=== PATIENT | male | born 1955 | race Caucasian/White ===

== ENCOUNTER → 2023-04-08 19:24 | Outpatient (REF) | payer MEDICARE, OTHER, SELFPAY | LOC: CLAB 19:24 | PROVIDERS: ATTENDING PHYSICIAN Otolaryngology | DX: J32.0 Chronic maxillary sinusitis (principal) | CPT/HCPCS: 87070; 87205 ==

== ENCOUNTER → 2023-06-10 08:49 | Outpatient (REF) | payer MEDICARE, OTHER, SELFPAY | LOC: RAD 08:49 | PROVIDERS: ATTENDING PHYSICIAN Registered Nurse; FAMILY PHYSICIAN Family Medicine | DX: I87.2 Venous insufficiency (chronic) (peripheral) (principal); I70.203 Unspecified atherosclerosis of native arteries of extremities, bilateral legs; M71.22 Synovial cyst of popliteal space [Baker], left knee | CPT/HCPCS: 93922; 93925; 93970 ==

== ENCOUNTER 2023-08-14 06:30 | Outpatient (RCR) | payer MEDICARE, OTHER, SELFPAY | END 2023-08-14 23:59 | disposition home or self-care (01) | LOC: RPT 06:30 | PROVIDERS: ATTENDING PHYSICIAN Surgery Vascular Surgery; FAMILY PHYSICIAN Family Medicine | DX: I89.0 Lymphedema, not elsewhere classified (principal); Z73.6 Limitation of activities due to disability; I87.2 Venous insufficiency (chronic) (peripheral) | CPT/HCPCS: 97016; 97162; 97530 ==

== ENCOUNTER 2023-09-03 14:42 | Outpatient (RCR) | payer MEDICARE, OTHER, SELFPAY | END 2023-09-03 23:59 | disposition home or self-care (01) | LOC: RPT 14:42 | PROVIDERS: ATTENDING PHYSICIAN Surgery Vascular Surgery; FAMILY PHYSICIAN Family Medicine | DX: I87.2 Venous insufficiency (chronic) (peripheral) (principal) | CPT/HCPCS: 97016; 97110; 97140; 97530 ==

== ENCOUNTER 2023-09-20 14:34 | Outpatient (RCR) | payer MEDICARE, OTHER, SELFPAY | END 2023-09-20 23:59 | disposition home or self-care (01) | LOC: RPT 14:34 | PROVIDERS: ATTENDING PHYSICIAN Surgery Vascular Surgery; FAMILY PHYSICIAN Family Medicine | DX: I87.2 Venous insufficiency (chronic) (peripheral) (principal); I89.0 Lymphedema, not elsewhere classified; Z73.6 Limitation of activities due to disability | CPT/HCPCS: 97110; 97140 ==

== ENCOUNTER 2023-10-07 06:04 | Day surgery (SDC) | payer MEDICARE, OTHER, SELFPAY ==
--- NOTE | 2023-09-05 09:45 | CM ---
Addendum entered by Susan Collazo 09/17/23 10:24:
VN referral completed and sent to [facility] through [employer] with request for start of care on 10/06.
Original Note:
Patient is scheduled for an elective L TKR on 10/07/23- he is a same day patient. Spoke with patient and his prior to surgery. Introduced role of Orthopedic Navigator. Patient reports that he lives with his in a two story home. There are
two steps to enter and a flight of steps to the second floor. He currently functions independently. He has no DME and has never had VN services. PCP is Ilya Christopher.
Discussed orthopedic program and post surgical plans. Reviewed that he will have VN services initially (medicare.gov website and ratings reviewed) and will then start outpatient PT. Patient selects VN (face sheet faxed to [facility] to facilitate
confirmation of benefits) for his home care needs and will go to [facility] for outpatient PT.
Patient is in agreement with plan and states that his will be home with him.
Patient will complete online education.
Plan: Orthopedic Navigator will remain available to assist with the care of patient and will reassess discharge needs after surgery.
[2023-09-20 14:12] VITALS: BMI 38.0
[2023-09-20 14:24] LABS: Hematocrit 41.8 % (39.0-52.0); Hemoglobin 14.6 g/dL (13.0-18.0); Mean Corp Hgb Conc. 34.9 g/dL (33.0-37.0); Mean Corpuscular Hgb 30.6 pg (27.0-31.0); Mean Corpuscular Volume 87.6 fL (80.0-94.0); Platelet Count 226 10^3/uL (130-400); Red Blood Cell Count 4.77 10^6/uL (4.70-6.10); Red Cell Dist. Width 14.2 % (11.5-14.5); White Blood Cell Count 6.4 10^3/uL (4.8-10.8)
[2023-09-20 15:22] LABS: ALT (SGPT) 26 U/L (0-50); AST (SGOT) 33 U/L (17-59); Alkaline Phosphatase 88 U/L (38-126); Blood Urea Nitrogen 21 mg/dl (9-20); Calcium 9.4 mg/dl (8.4-10.2); Carbon Dioxide 26 mmol/L (22-30); Chloride 105 mmol/L (98-107); Estimated Creatinine Clearance 77 ml/min; Glucose 127 mg/dl (70-99); Potassium 4.1 mmol/L (3.5-5.1); Sodium 138 mmol/L (135-145); Total Bilirubin 1.4 mg/dl (0.2-1.3); Total Protein 6.3 g/dl (6.3-8.2); eGFR > 60.00
[2023-09-22 10:58] LABS: Glycohemoglobin (HgbA1c) 5.2 % (4.0-5.6)
[2023-10-01 11:25] VITALS: BMI 38.0
[2023-10-07] VITALS (12 sets, daily range): BP systolic 101–134; BP diastolic 70–86; PULSE 72; O2SAT 94
[2023-10-07] MEDS: CELEBREX 200 MG PO (06:26)
[2023-10-07] MEDS: TYLENOL 650 MG PO (06:27)
[2023-10-07] MEDS: NORMOSOL-R 1000 IV (06:34)
[2023-10-07] MEDS: ROXICODONE 5 MG PO (10:38)
--- NOTE | 2023-10-07 10:39 | SUR.PHASEI ---
patient in pacu post op total knee replacement- comfortable in pacu, sats low initially - encouraged deep breathing and coughing. chest clear, vss - discharged to [facility] with report
[2023-10-07] MEDS: ANCEF 5 IV (11:26)
== END 2023-10-07 11:47 | disposition home or self-care (01) ==
LOC: SDS 06:04
PROVIDERS: ATTENDING PHYSICIAN Specialist; FAMILY PHYSICIAN Family Medicine
DX: M17.12 Unilateral primary osteoarthritis, left knee (principal); E66.01 Morbid (severe) obesity due to excess calories; Z68.37 Body mass index [BMI] 37.0-37.9, adult
CPT/HCPCS: 27447; C1776; 73560; 80053; 83036; 85027; 87070; 97116; 97162; C1713

== ENCOUNTER 2023-11-25 11:53 | Outpatient (RCR) | payer MEDICARE, OTHER, SELFPAY | END 2023-11-25 23:59 | disposition home or self-care (01) | LOC: RPT 11:53 | PROVIDERS: ATTENDING PHYSICIAN Surgery Vascular Surgery; FAMILY PHYSICIAN Family Medicine | DX: I89.0 Lymphedema, not elsewhere classified (principal); I87.2 Venous insufficiency (chronic) (peripheral); Z73.6 Limitation of activities due to disability | CPT/HCPCS: 97140; 97530 ==

== ENCOUNTER 2023-12-24 10:49 | Outpatient (RCR) | payer MEDICARE, OTHER, SELFPAY | END 2023-12-24 23:59 | disposition home or self-care (01) | LOC: RPT 10:49 | PROVIDERS: ATTENDING PHYSICIAN Surgery Vascular Surgery; FAMILY PHYSICIAN Family Medicine | DX: I89.0 Lymphedema, not elsewhere classified (principal); I87.2 Venous insufficiency (chronic) (peripheral); Z73.6 Limitation of activities due to disability | CPT/HCPCS: 97110; 97140 ==

== ENCOUNTER 2024-02-26 14:08 | Outpatient (RCR) | payer MEDICARE, OTHER, SELFPAY | END 2024-02-27 07:33 | disposition home or self-care (01) | LOC: RPT 14:08 | PROVIDERS: ATTENDING PHYSICIAN Surgery Vascular Surgery; FAMILY PHYSICIAN Family Medicine | DX: I89.0 Lymphedema, not elsewhere classified (principal); I87.2 Venous insufficiency (chronic) (peripheral); Z73.6 Limitation of activities due to disability | CPT/HCPCS: 97140; 97530 ==

== ENCOUNTER 2024-08-19 09:13 | Day surgery (SDC) | payer MEDICARE, OTHER, SELFPAY | END 2024-08-19 11:50 | disposition home or self-care (01) | LOC: CATH 09:13 | PROVIDERS: ATTENDING PHYSICIAN Internal Medicine Cardiovascular Disease; FAMILY PHYSICIAN Family Medicine; OTHER PHYSICIAN Internal Medicine Cardiovascular Disease | DX: I48.19 Other persistent atrial fibrillation (principal); I08.1 Rheumatic disorders of both mitral and tricuspid valves; Z79.01 Long term (current) use of anticoagulants; I49.8 Other specified cardiac arrhythmias; I44.0 Atrioventricular block, first degree | CPT/HCPCS: 93312; 93320; 93325; 92960; 93005 ==

== ENCOUNTER 2024-08-27 09:37 | Emergency (ER) | payer MEDICARE, OTHER, SELFPAY ==
[2024-08-27] VITALS (24 sets, daily range): BP systolic 114–143; BP diastolic 82–102; BMI 37.8
--- NOTE | 2024-08-27 10:16 | ED.GENMED ---
History of Present Illness
General
Chief Complaint: Heart Rate Problem
Source: patient and spouse
Exam Limitations: none
Time Seen by Provider: 08/27/24 09:56
Nursing documentation reviewed up to this point in time: agreed with
History of Present Illness
History of Present Illness:
68-year-old male past medical history of atrial fibrillation diagnosed about a month ago as well as hypertension presenting to the emergency department today with concerns of being in atrial fibrillation since yesterday according to his [employer]
and feeling some degree of shortness of breath today even at rest slightly worse with exertion. No chest pain or palpitations at this point. Had a AYAZ cardioversion 8 days ago. Patient is currently on Eliquis and metoprolol and has not missed any
doses.
Past History
Past History
ED Past Medical History: Negative CVA or HTN
Social History
Personal:
Living: with family
Employment: Employed
Review of Systems
Review of Systems
Allergies reviewed?: Yes
All Other Systems: ROS reviewed and negative except as documented in HPI and ROS
Phy Exam
Physical Exam
Physical Exam:
GENERAL: Alert , in no apparent distress
EYE: pupils equal and reactive
NECK: Supple, no significant adenopathy.
ENT: o/p clr, mmm.
CARDIAC: Irregularly irregular rhythm and rate
LUNGS: Clear breath sounds bilaterally, no acute respiratory distress, no wheezes/rales/rhonchi
ABDOMEN: Soft, without focal tenderness, no r/g, no cvat
NEUROLOGICAL: Alert and oriented, no focal neuro deficits
SKIN: Warm and dry, skin intact.
MUSCULOSKELETAL: No edema, well perfused.
PSYCH: Normal and appropriate interaction.
Course
Orders/Labs/Results
Orders:
Orders
08/27/24
Electrocardiogram (*1) Stat
Comment: DONE
08/27/24 09:38
EKG [Electrocardiogram (*1)] Urgent
Reason for Study: Atrial Fibrillation
EKG- Treatment ONCE
08/27/24 10:12
CR Chest - 2 Views Urgent
Comment:
Reason For Exam: SOB
08/27/24 10:18
Complete Blood Count/With Diff Urgent
Comprehensive Metabolic Panel Urgent
Magnesium Urgent
NT-proBNP Urgent
Troponin I Urgent
08/27/24 11:40
Propofol [Diprivan] 20 ml .ROUTE .STK-MED
Abnormal Lab Results
08/27/24
10:18
Absolute Lymphs (auto) 1.0 L 10^3/uL
(1.2-3.4)
Lymphocytes % 19.5 L %
(20.5-51.1)
Chloride 111 H mmol/L
(98-107)
BUN 23 H mg/dl
(9-20)
Total Bilirubin 1.5 H mg/dl
(0.2-1.3)
08/27/24 10:18
08/27/24 10:18
Vital Signs
Initial and Last Documented VS:
Initial Vital Signs
Temp Pulse Resp BP Pulse Ox
97.7 F 107 20 143/94 96
08/27/24 09:46 08/27/24 09:46 08/27/24 09:46 08/27/24 09:46 08/27/24 09:46
Last Documented Vital Signs
Temp Pulse Resp BP Pulse Ox
97.8 F 74 12 120/88 97
08/27/24 12:05 08/27/24 12:16 08/27/24 12:16 08/27/24 12:16 08/27/24 12:16
Procedures
Cardioversion
Indication:: Afib
Performed by:: Dr. Reeves, myself
Synchronized?: Yes
Energy Used: 200 joules
Number of attempts: 1
Successful?: Yes
Complications: None
ASA Risk Score: Class II
Any reaction or bad outcome to prior sedation/anesthesia?: No history of a reaction
Sedation level to be attained: moderate
Chart and allergies reviewed: Yes
Patient reassessed prior to sedation: Yes
Time out completed at (validating right patient & procedure): 11:46
History of difficult intubation: No
Airway free of obstruction: Yes
Patient has a gag reflex: Yes
Patient is able to open mouth: Yes
Patient has no dentures: Yes
Patient has no loose teeth: Yes
Medication administered by Provider during Moderate Sedation: IV Propofol (mg) (80)
Total dose administered: 80
Time drug administered: 11:46
Start Time: 11:46
Stop Time: 11:57
MDM/Problems Addressed
MDM/Problems Addressed:
68-year-old male presenting to the emergency department today with concerns of vague shortness of breath even at rest slightly worse with exertion today. [employer] was notifying him of atrial fibrillation since yesterday. Does have a history of
this over the past month or so has been on Eliquis and metoprolol. Had a cardioversion 8 days ago. Here patient is in atrial fibrillation heart rate ranging from 80-100. Does have some ongoing shortness of breath. Case was discussed with
cardiology and recommended cardioversion. This was performed here without incident. Patient tolerated well with conversion to sinus rhythm. Patient then discharged in stable condition with close follow-up with cardiology.
*Pulse Oximetry
SaO2: 96
Oxygen Mode of Delivery: Room air
Patient hypoxic: no (97)
*Critical Care Note
Total Time (30-74mins, 75-104mins- exclusive of procedures): Not Applicable
ED Attending Note
-
Portions of this chart may have been created with voice recognition software.� Occasional wrong word or��sound alike� substitutions may have occurred due to the inherent limitations of voice recognition software.
Discharge Plan
Departure
Patient Disposition: Home (Routine Discharge)
Date of Disposition: 08/27/24
Time of Disposition: 12:54
Patient with high blood pressure during this ER visit?: No
Condition: Good
Covid-19: Not Applicable
Discharge Problem:
Atrial fibrillation
Instructions: Atrial Fibrillation (DC)
Prescriptions:
No Action
amlodipine 10 mg Tablet
10 mg PO HS
multivitamin Capsule
1 cap PO DAILY
Breo Ellipta 50-25 mcg/dose Blister With Device
1 ea INHALATION DAILY PRN (Reason: congestion)
acetaminophen [Tylenol] 325 mg Capsule
650 mg PO Q6H PRN (Reason: pain/headache)
sennosides [Senokot] 8.6 mg tablet
8.6 mg PO BID PRN (Reason: Constipation) Qty: 14 0RF
metoprolol succinate 50 mg Tablet Extended Release 24 Hr
50 mg PO BID
Eliquis 5 mg Tablet
5 mg PO BID
Referrals:
Ilya Christopher MD [Family Provider, Family Practice]
Calvin Booker MD [Active, Cardiology] - Follow up in 1 week
Activity Restrictions/Additional Instructions:
You came to the emergency department today with concerns of atrial fibrillation. Please follow closely with cardiology. Return for any worsening, new or concerning symptoms.
Interventions
Interventions:
*Risk Screen - Suicide Last Done: 08/27/24 09:46
*General Assessment Last Done: 08/27/24 10:22
*Neglect/Abuse Screening Last Done: 08/27/24 09:46
*ED- Fall Risk Assessment Last Done: 08/27/24 10:22
*ED COVID-19 Vaccine History Last Done: 08/27/24 09:46
ED- Cardiac Assessment Last Done: 08/27/24 10:43
ED- Pulmonary Assessment Last Done: 08/27/24 10:43
Discharge Date and Time
Print Language: FRENCH
[2024-08-27 10:26] LABS: Hematocrit 44.5 % (39.0-52.0); Hemoglobin 15.3 g/dL (13.0-18.0); Mean Corp Hgb Conc. 34.4 g/dL (33.0-37.0); Mean Corpuscular Volume 88.1 fL (80.0-94.0); Nucleated Red Blood Cells % 0 % (-); Platelet Count 182 10^3/uL (130-400); Red Cell Dist. Width 14.3 % (11.5-14.5)
[2024-08-27 10:50] LABS: Troponin I < 0.012 ng/ml
[2024-08-27 11:22] LABS: ALT (SGPT) 15 U/L (0-50); AST (SGOT) 20 U/L (17-59); Albumin 4.0 g/dl (3.5-5.0); Alkaline Phosphatase 79 U/L (38-126); Blood Urea Nitrogen 23 mg/dl (9-20); Calcium 8.8 mg/dl (8.4-10.2); Carbon Dioxide 23 mmol/L (22-30); Chloride 111 mmol/L (98-107); Estimated Creatinine Clearance 93 ml/min; Glucose 92 mg/dl (70-99); Magnesium 2.0 mg/dl (1.6-2.3); Potassium 4.2 mmol/L (3.5-5.1); Sodium 139 mmol/L (135-145); Total Protein 6.7 g/dl (6.3-8.2); eGFR > 60.00
== END 2024-08-27 13:10 | disposition home or self-care (01) ==
LOC: EMR 09:37
PROVIDERS: Physician Assistant; EMERGENCY PHYSICIAN Emergency Medicine; FAMILY PHYSICIAN Family Medicine
DX: I48.91 Unspecified atrial fibrillation (principal); I10 Essential (primary) hypertension; Z79.01 Long term (current) use of anticoagulants; Z79.899 Other long term (current) drug therapy
CPT/HCPCS: 92960; 99152; 99285; 71046; 80053; 83735; 83880; 84484; 85025; 93005

== ENCOUNTER → 2024-10-06 12:56 | Outpatient (REF) | payer MEDICARE, OTHER, SELFPAY | LOC: RCS 12:56 | PROVIDERS: ATTENDING PHYSICIAN Internal Medicine Cardiovascular Disease; FAMILY PHYSICIAN Family Medicine | DX: I48.91 Unspecified atrial fibrillation (principal) | CPT/HCPCS: 93306 ==

== ENCOUNTER 2024-10-17 13:17 | Inpatient (IN) | payer MEDICARE, OTHER, SELFPAY ==
[2024-10-17] VITALS (25 sets, daily range): BP systolic 115–165; BP diastolic 62–132; BMI 36.6; BMI 40.1
--- NOTE | 2024-10-17 08:08 | ED.GENMED ---
History of Present Illness
General
Chief Complaint: Breathing Problem
Source: patient, records and spouse
Exam Limitations: none
Time Seen by Provider: 10/17/24 07:52
Nursing documentation reviewed up to this point in time: agreed with
History of Present Illness
History of Present Illness:
69-year-old male with past medical history of hypertension, atrial fibrillation on Eliquis who presents to the ER with his for evaluation of shortness of breath. Patient reports progression of symptoms over the past 2 weeks. He reports
shortness of breath with light exertion. He reports significant orthopnea�has to sit upright to sleep essentially. He reports mild nonproductive cough. He reports increased swelling in his legs�has mild chronic lymphedema much worse than usual
recently. He denies any chest pain or palpitations. 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
Past History
Past History
ED Past Medical History: Negative CVA or HTN
Social History
Personal:
Living: with family
Employment: Employed
Review of Systems
Review of Systems
All Other Systems: ROS reviewed and negative except as documented in HPI and ROS
Constitutional: Reports fatigue; Denies fever
Respiratory: Reports cough and trouble breathing
Cardiac: Denies chest pain or palpitations
ABD/GI: Denies abdominal pain
: Denies flank pain
Musculoskeletal: Reports edema; Denies neck pain or back pain
Neurological: Denies headache
Phy Exam
Physical Exam
Physical Exam:
General: Awake, alert, oriented x3; sitting upright in bed in no acute distress
Head: Normocephalic, atraumatic
Eyes: Conjunctiva normal, EOMI
Throat: Airway intact, handling secretions
Neck: Trachea midline, no JVD appreciated
Lungs: Patient has mild tachypnea with a respiratory rate of 20-22, no hypoxia; patient has rales at the lung bases bilaterally
Heart: Tachycardia with irregularly irregular rhythm, no murmurs, gallops, or rubs appreciated
Neuro: Grossly intact
Extremities: Marked bilateral lower extremity edema +3 pitting in the lower extremities bilaterally; extremities are warm and well-perfused
Scores
Heart Failure Risk
Heart Failure Risk Score: Not Applicable
Heart Score for Chest Pain Patients
STEMI patient?: Not applicable
Withdrawal Assessment of Alcohol
Withdrawal Assessment Completed?: Not applicable
Course
Orders/Labs/Results
Orders:
Orders
10/17/24 07:29
EKG [Electrocardiogram (*1)] Urgent
Reason for Study: Atrial Fibrillation
EKG- Treatment ONCE
10/17/24 08:06
Metoprolol [Lopressor] 5 mg IV NOW STA
10/17/24 08:07
CR Chest - 2 Views Urgent
Comment:
Reason For Exam: sob, LE swelling, c/f CHF
10/17/24 08:12
Complete Blood Count/With Diff Urgent
Comprehensive Metabolic Panel Urgent
NT-proBNP Urgent
TSH Reflex To Free T4 Urgent
Troponin I Urgent
10/17/24 09:52
CARDIOLOGY CONSULT Urgent
Consulting Provider: Arash Hernandez
Was physician already notified: Yes
Furosemide [Lasix] 40 mg IV NOW STA
10/17/24 13:08
Admit/Transfer Patient As Directed
Co-Sign Provider:
Level of Care: Inpatient admission
Assign to:: Telemetry
Physician / Group: Nancy Castañeda - hospitalists
Diagnosis: acute CHF, Rapid A. Fib
Reason for Telemetry: Acute Heart Failure
Date to Stop Telemetry: 10/20/24
Time to Stop Telemetry: 11:00
Reason for Hospitalization: acute CHF, Rapid A. Fib - IV diuretics, rate control with IV agents
Expected length of stay greater than two midnights?: Yes
ELOS- Estimated Length of Stay in days: 2
I certify the patient meets the requirements for IP care: Yes
PRN Pain Medication Management As Directed
May give lesser potent ordered pain med per pt: Yes
preference::
Protocol:: Medication orders for pain may be administered in a
manner that supports deferring to patient preference
when the pt is:
- Requesting an ordered lesser potent pain medication.
Least to most potent pain medications are defined
as: acetaminophen < NSAID < tramadol < opioids
(morphine, oxycodone, hydromorphone).
- Requesting a lesser dose of the same medication IF
ORDERED.
- Requesting a less intrusive route of administration
if both routes are prescribed by the provider (PO <
IV).
10/17/24 13:09
Code Status As Directed
Resuscitation Status: Full Code
10/17/24 16:00
Furosemide [Lasix] 40 mg IV BID AT 0800,1600
10/20/24 11:00
DC Protocol for Telemetry ONCE
Abnormal Lab Results
10/17/24
08:12
RBC 4.55 L 10^6/uL
(4.70-6.10)
MCHC 32.9 L g/dL
(33.0-37.0)
RDW 15.0 H %
(11.5-14.5)
Absolute Lymphs (auto) 0.9 L 10^3/uL
(1.2-3.4)
Absolute Monos (auto) 0.7 H 10^3/uL
(0.1-0.6)
Lymphocytes % 12.9 L %
(20.5-51.1)
Monocytes % 9.7 H %
(1.7-9.3)
Chloride 109 H mmol/L
(98-107)
BUN 23 H mg/dl
(9-20)
ALT 81 H U/L
(0-50)
Total Protein 5.9 L g/dl
(6.3-8.2)
10/17/24 08:12
10/17/24 08:12
Vital Signs
Initial and Last Documented VS:
Initial Vital Signs
Temp Pulse Resp BP Pulse Ox
36.4 C 113 20 150/113 97
10/17/24 07:25 10/17/24 07:25 10/17/24 07:25 10/17/24 07:25 10/17/24 07:25
Last Documented Vital Signs
Temp Pulse Resp BP Pulse Ox
36.9 C 96 22 115/92 97
10/17/24 08:05 10/17/24 13:45 10/17/24 13:45 10/17/24 13:45 10/17/24 13:45
MDM/Problems Addressed
Differential Diagnosis Includes:
Symptomatic atrial fibrillation, congestive heart failure, pneumonia; PE less likely given patient on anticoagulation; ACS less likely without chest pain
MDM/Problems Addressed:
69-year-old male presents for progressive shortness of breath with exertion, orthopnea, lower extremity swelling over the past 2 weeks in the setting of known A-fib and upcoming scheduled ablation. He is hypertensive and tachycardic on arrival. He
has mild tachypnea but no hypoxia. His arrival EKG shows A-fib with RVR. Physical exam as documented. Overall clinical picture is consistent with acute congestive heart failure likely triggered by rapid atrial fibrillation. Will plan to place an
IV send labs including a CBC and a CMP, troponin, proBNP. Will check a chest x-ray. Will provide IV metoprolol for rate control. Will monitor very closely reassess after the above. Anticipate admission.
Labs reviewed: CBC unremarkable, CMP no clinically significant abnormalities. Troponin negative. proBNP is elevated at 2120. Chest x-ray shows some vascular congestion but no karlos edema or other acute abnormalities. Clinical reassessment
patient's heart rate has improved with IV Lopressor now 90-100. Case discussed with cardiology for consultation. I think at this point with poorly controlled A-fib and congestive heart failure will admit for continued management. Discussed case
with hospitalist.
Chronic conditions affecting care:
Atrial fibrillation
Acute Exacerbation and/or Progression of Chronic Illness:
Acute atrial fibrillation with rapid ventricular response�managed with metoprolol as above
Acute congestive heart failure exacerbation managed with diuretics as above
Acute hypertension managed with metoprolol as above
Acute Exacerbation and/or Progression of Chronic Illness: HTN and Arrhythmia
*Radiology
Radiology exam reviewed: preliminary read by ED provider and radiology read reviewed
*Pulse Oximetry
SaO2: 98
Oxygen Mode of Delivery: Room air
Patient hypoxic: no (98%)
*EKG
Interpreted by ED Provider?: Yes
Comparison EKG: changes noted (Now in atrial fibrillation compared to prior)
Heart Rate: 110
Rate: tachycardiac
Rhythm: a-fib
Champion: normal axis
Interval: long QT
QRS Pattern: normal QRS
Ischemia: no ischemia
*Critical Care Note
Total Time (30-74mins, 75-104mins- exclusive of procedures): Not Applicable
Data Reviewed
Review of Other/Old Records Reveals: Labs and Records
Source: patient, records and spouse
Patient Management
Discussion with other providers: Hospitalist (Discussed with hospitalist) and Health Plan Manager (Discussed with cardiology)
Escalation/DeEscalation of care consider admission/obs:
Admission indicated
ED Attending Note
-
Portions of this chart may have been created with voice recognition software.� Occasional wrong word or��sound alike� substitutions may have occurred due to the inherent limitations of voice recognition software.
Discharge Plan
Departure
Patient Disposition: Admit
Date of Disposition: 10/17/24
Time of Disposition: 10:15
Admit to doctor: Sho
Presentation/result/management discussed w/ accepting MD/DO: Hospitalist
Discharge Problem:
CHF exacerbation, Atrial fibrillation with RVR
Interventions
Interventions:
*Risk Screen - Suicide Last Done: 10/17/24 07:25
*General Assessment Last Done: 10/17/24 08:05
*Neglect/Abuse Screening Last Done: 10/17/24 08:05
*ED- Fall Risk Assessment Last Done: 10/17/24 08:05
*ED COVID-19 Vaccine History Last Done: 10/17/24 08:05
ED- Cardiac Assessment Last Done: 10/17/24 08:05
ED- Pulmonary Assessment Last Done: 10/17/24 08:05
[2024-10-17 08:24] LABS: Hematocrit 41.0 % (39.0-52.0); Hemoglobin 13.5 g/dL (13.0-18.0); Mean Corp Hgb Conc. 32.9 g/dL (33.0-37.0); Mean Corpuscular Volume 90.1 fL (80.0-94.0); Nucleated Red Blood Cells % 0 % (-); Platelet Count 201 10^3/uL (130-400); Red Cell Dist. Width 15.0 % (11.5-14.5)
[2024-10-17 08:36] LABS: ALT (SGPT) 81 U/L (0-50); AST (SGOT) 49 U/L (17-59); Albumin 3.6 g/dl (3.5-5.0); Alkaline Phosphatase 85 U/L (38-126); Blood Urea Nitrogen 23 mg/dl (9-20); Calcium 8.5 mg/dl (8.4-10.2); Carbon Dioxide 29 mmol/L (22-30); Chloride 109 mmol/L (98-107); Estimated Creatinine Clearance 75 ml/min; Glucose 97 mg/dl (70-99); Potassium 4.1 mmol/L (3.5-5.1); Sodium 140 mmol/L (135-145); Total Protein 5.9 g/dl (6.3-8.2); eGFR > 60.00
[2024-10-17 08:51] LABS: Troponin I 0.014 ng/ml
[2024-10-17] MEDS: LOPRESSOR 5 MG IV (08:54)
[2024-10-17] MEDS: LASIX 40 MG IV ×2 (10:58→18:19)
--- NOTE | 2024-10-17 12:05 | CON.CAR ---
Addendum entered and electronically signed by Arash Hernandez MD 10/17/24 16:23:
I saw and evaluated the patient, and I provided the substantive portion of the medical decision making.
I reviewed and agree with the note by FREDERIC Mendosa and it accurately reflects our care.
I personally performed the medical decision making of the this encounter and my assessment and plan is below:
He has several weeks of new orthopnea. He has chronic LLE edema attributed to lymphedema but edema worsened and new RLE edema developed. Progressive RAMIREZ. AFib found this summer, last proven to be in sinus about Jan 2025. Plans for afib ablation in
just several weeks.
EKG with fast afib, crackle are not noted on lung exam, 3+ LLE and 2+ RLE edema is present. CXR reviewed: cardiac enlargement, no effusion or obvious edema. Labs Hgb 13.5, Cr 1.2, pBNP 2120, trop x1 negative.
New acute severe HFpEF. Will need IV diuresis with intensive monitoring. High risk.
Mod MR
AFib, persistent with RVR
HTN
Will benefit from admit for IV diuresis
Adjust meds for HFpEF but sinus and rate control should help as well
Original Note:
Consultation
Consultation Request
Date/Time Consultation Requested: 10/17/2024 1030
Date/Time Consultation Performed: 10/17/2024 1045
Requesting Provider: Dr. Coker
Performing Provider: Dr. Hernandez
Reason for Consultation: SOB, edema
Medical History
-
Chief Complaint: SOB, edema
History of Present Illness:
68-year-old patient with history of persistent atrial fibrillation, hypertension sleep apnea ,obesity, asthma and lymphedema. He had previously been seen in the office for new onset of atrial fibrillation earlier in the year. He proceeded to AYAZ
cardioversion on 09-11 and normal sinus rhythm was restored. He started having recurrent symptoms associated with atrial fibrillation and on 08/27/2024 he went back to the emergency room. He proceeded with repeat cardioversion in the emergency room.
He then had recurrent symptoms on 08/31/2024 his metoprolol dosing was increased at that time. Plans were made for consultation for ablation which she had on 09/10/2024. He was initiated on amiodarone at that time. Since that office visit he has
had progressive shortness of breath dyspnea and now orthopnea. He was on a cruise approximately 1 week ago and then over the last 24 hours had flown to [place]. Patient notes he has significant increase in his bilateral lower extremity edema
despite utilizing his lymphedema pumps at home.
Past Medical History
Past Medical History: Other (Hypertension, persistent atrial fibrillation, sleep apnea, vertigo, hiatal hernia, asthma, GERD)
Past Surgical History: Other (Right TKR 2006, vein stripping, cataract removal, carpal tunnel surgery, left foot surgery, nasal polyp removal,)
Social History
Tobacco: Non-Smoker
Alcohol: None
Personal:
Family History
Family History: Reviewed & Not Pertinent
Allergies / Home Medications
Allergy/AdvReac Type Severity Reaction Status Date / Time
oxycodone (From Percocet) Allergy Pharmacy Verified 10/16/24 15:44
to Review
�Medication �Instructions �Recorded �Confirmed �Type
fluticasone furoate 50 1 ea inhalation PRN PRN SOB 09/30/23 10/17/24 History
mcg-vilanterol 25 mcg/dose
inhalation powder (Breo Ellipta)
apixaban 5 mg tablet (Eliquis) 5 mg PO BID 08/19/24 10/17/24 History
metoprolol succinate 50 mg 100 mg PO DAILY 08/19/24 10/17/24 History
tablet,extended release 24 hr
amiodarone 200 mg tablet 200 mg PO DAILY 10/16/24 10/17/24 History
multivitamin 1 tab PO DAILY 10/16/24 10/17/24 History
albuterol sulfate 2.5 mg/3 mL 2.5 mg inhalation Q4H PRN SOB 10/17/24 10/17/24 History
(0.083 %) solution for nebulization
Review of Systems
-
History Source: Patient
Constitutional: Weight Gain
EENT: No Symptoms
Respiratory: Trouble Breathing
Cardiac: Palpitations
Abdomen/GI: No Symptoms
: No Symptoms
Musculoskeletal: Edema (Worsening bilateral lower extremity edema left greater than right)
Neurological: No Symptoms
Physical Exam
Vital Signs
Temp Pulse Resp BP Pulse Ox
98.5 F 91 18 144/116 97
10/17/24 08:05 10/17/24 11:51 10/17/24 11:51 10/17/24 11:51 10/17/24 11:51
Lab Results
10/17/24 08:12
10/17/24 08:12
Troponin I 0.014 ng/ml 10/17/24 08:12
Khd-E-Ojbnsmjveoo Pept 2120 pg/ml 10/17/24 08:12
Physical Exam
General: Well Developed, Well Nourished and No Apparent Distress
Respiratory: Wheezes
Cardiac: S1/S2, Irregular Rhythm and Peripheral Edema (Moderate to severe bilateral lower extremity edema left greater than right)
Breast: Deferred by me
GI: Soft, Non Tender and Normal Bowel Sounds
Musculoskeletal: Edema (Moderate to severe bilateral lower extremity edema left greater than right)
Skin: Warm and Dry
Neuro: AO x 3
Hematologic/Lymphatic: No Lymphadenopathy
Psych: Calm
Impression / Plan
-
Acute heart failure preserved ejection fraction:
-Patient with increased lower extremity edema, orthopnea and RAMIREZ. BNP 2120
-Patient currently not on diuretic therapy as an outpatient. Patient requires inpatient IV diuresis and intensive monitoring.
-monitor labs
-echo From October 06, 2024 normal LV systolic function EF 55-60, moderate eccentric mitral regurgitation color flow suggestive of PFO, dilated ascending aorta 4.3 cm
-Sodium and fluid restrictions.
-Mildly elevated LFTs. Reassess with diuresis. Patient also on amiodarone
Persistent atrial fibrillation RVR
-Currently on amiodarone.Will titrate beta-darian as well.
-Patient on anticoagulation with Eliquis without missed doses
-Plan for outpatient ablation as scheduled 10/27/2024 if heart failure is stable.
Hypertension:
-Monitor with diuresis. May need further titration of antihypertensives
Chronic lymphedema:
He utilizes home pumps now adding diuretic
Data Reviewed
-
EKG: Tracing Personally Visualized and interpreted (EKG with atrial fibrillation RVR [address] abnormality. )
Medical Tests (Nuc Med, Echo etc): Report Reviewed by me (Echocardiogram 10/06/2024: 1. Normal left ventricular systolic function. 2. Estimated ejection fraction 55 to 60%. 3. Moderate eccentric mitral regurgitation. 4. Color-flow suggestive of
PFO. 5. Dilated ascending aorta 4.3 cm.)
Labs: Labs Reviewed by me and Discussed with Physician
--- NOTE | 2024-10-17 12:59 | HPS.HSE ---
Family Physician
-
Family Physician: Ilya Christopher
Chief Complaint
-
SOB with exertion
History of Present Illness
69 y/o M, hx of HTN, Afib on Amio/Eliquis, SHRADDHA, Obesity, Asthma, lymphedema presenting to ER for SOB. Patient previously had Afib and had jew to NSR with AYAZ/CV in August. More recently his betablocker dosing was increased. He was scheduled
for ablation as well and started Amiodarone. Since last office visit he has been having progressive SOB, dyspnea and orthopnea for 2 weeks. Also recently noting increasing LE edema (hx of lymphedema) - despite using his lymphedema pumps at home.
Denies CP. No fever/chills. No other complaints.
in ER, found to be in Rapid A. Fib and CHF - given IV Lopressor and IV Lasix.
Medical History
Past Medical History
Past Medical History: Reports Other (HTN, Afib on Amio/Eliquis, SHRADDHA, Obesity, Asthma, lymphedema)
Past Surgical History: Reports Other (Right TKR 2006, vein stripping, cataract removal, carpal tunnel surgery, left foot surgery, nasal polyp removal)
Social History
Tobacco: Non-smoker
Alcohol: None
Personal:
Family History
Family History: Not pertinent
Allergies / Home Medications
Allergies reflects when Allergies were last updated in [facility].
Home Medications with original date entered in [facility]
Allergy/Medication List:
Allergies
Allergy/AdvReac Type Severity Reaction Status Date / Time
oxycodone (From Percocet) Allergy Pharmacy Verified 10/16/24 15:44
to Review
Home Medications
fluticasone furoate 50 mcg-vilanterol 25 mcg/dose inhalation powder (Breo Ellipta) 1 ea inhalation PRN PRN SOB 09/30/23
apixaban 5 mg tablet (Eliquis) 5 mg PO BID 08/19/24
metoprolol succinate 50 mg tablet,extended release 24 hr 100 mg PO DAILY 08/19/24
amiodarone 200 mg tablet 200 mg PO DAILY 10/16/24
multivitamin 1 tab PO DAILY 10/16/24
albuterol sulfate 2.5 mg/3 mL (0.083 %) solution for nebulization 2.5 mg inhalation Q4H PRN SOB 10/17/24
Review of Systems
-
A 12 point ROS was completed and negative except as noted: Yes
Physical Exam
Vital Signs
Vital Signs
Temp Pulse Resp BP Pulse Ox
98.5 F 91 18 144/116 97
10/17/24 08:05 10/17/24 11:51 10/17/24 11:51 10/17/24 11:51 10/17/24 11:51
Physical Exam
General: No Apparent Distress
HEENT: NormoCephalic and Anicteric
Respiratory: Wheezes and Crackles
Cardiac: Irregular Rhythm
GI: Soft and Non Tender
Musculoskeletal: Edema, Left Lower Extremity and Edema, Right Lower Extremity
Neuro: AO x 3
Psych: Calm
Laboratory Results
-
10/17/24 08:12
10/17/24 08:12
Laboratory Results
Total Bilirubin 1.2 mg/dl (0.2-1.3) 10/17/24 08:12
AST 49 U/L (17-59) 10/17/24 08:12
ALT 81 U/L (0-50) H 10/17/24 08:12
Alkaline Phosphatase 85 U/L (38-126) 10/17/24 08:12
Troponin I 0.014 ng/ml 10/17/24 08:12
Data Reviewed
-
Diagnostic Radiology: Report Reviewed by me
Lab Data: Labs Reviewed by me
Impression/Plan
-
Assessment:
Acute HFpEF
- Echo 10/06 OP: normal LV systolic function EF 55-60, moderate eccentric mitral regurgitation color flow suggestive of PFO, dilated ascending aorta 4.3 cm
- start IV Lasix 40mg BID - requires intensive monitoring of I/O, lytes, weights
- OFR, sodium restrictions
- CHF education
- CBC Cards evaluation
Elevated LFTs
- suspect passive congestion in setting of CHF
- monitor with labs
Persistent atrial fibrillation RVR
- continue amiodarone. titrate BB per Cardiology
- continue Eliquis
- Ablation planned 10/27/24
Essential HTN
- monitor
Chronic lymphedema:
- He utilizes home pumps
SHRADDHA - may bring in home device
DVT ppx: Eliquis
Code: Full
--- NOTE | 2024-10-17 15:49 | EDRN ---
this RN called the receiving unit and notified them that paper report was going to be tubed up
[2024-10-17] MEDS: FLUSH (NSS) 2 FLUSH IV (18:20)
[2024-10-17] MEDS: ELIQUIS 5 MG PO (20:32)
[2024-10-18] VITALS (8 sets, daily range): BP systolic 121–152; BP diastolic 81–108; PULSE 103; O2SAT 96; BMI 39.2
--- NOTE | 2024-10-18 02:08 | PTCARENOTE ---
10/17/2024 - PT in 2128 has swelling to b/l lower leg. PT has hx of chronic b/l lower leg lymphedema with l. extremity always larger. PT underwent l. knee replacement in September of 2023. 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
day cruise to [facility] on 07/15. She said there was increased swelling before they left but it's progressed since their return. L. leg is warm to touch and larger than r. leg. PT denies pain. states that he uses compression machine during the
day for the chronic lymphedema and will bring it in this morning. Contacted [facility] and US of b/l lower extremities ordered.
--- NOTE | 2024-10-18 03:51 | W.PN.UPDATE ---
Update Note
Progress Note Update
Bilateral chronic lower extremity edema (hx of lymphedema)L>R. Left lower leg is warm to touch. He uses a lymphedema machine at home. B/L LE ultrasound negative for DVT. He and his just returned from a 5 day cruise and his legs appear to be
more swollen than usual.
[2024-10-18 06:29] LABS: Hematocrit 41.7 % (39.0-52.0); Hemoglobin 13.6 g/dL (13.0-18.0); Mean Corp Hgb Conc. 32.6 g/dL (33.0-37.0); Mean Corpuscular Volume 90.5 fL (80.0-94.0); Platelet Count 183 10^3/uL (130-400); Red Cell Dist. Width 15.1 % (11.5-14.5)
[2024-10-18 06:42] LABS: ALT (SGPT) 72 U/L (0-50); AST (SGOT) 40 U/L (17-59); Albumin 3.5 g/dl (3.5-5.0); Alkaline Phosphatase 78 U/L (38-126); Blood Urea Nitrogen 19 mg/dl (9-20); Calcium 8.6 mg/dl (8.4-10.2); Carbon Dioxide 33 mmol/L (22-30); Chloride 105 mmol/L (98-107); Estimated Creatinine Clearance 70 ml/min; Glucose 94 mg/dl (70-99); Magnesium 2.0 mg/dl (1.6-2.3); Potassium 3.9 mmol/L (3.5-5.1); Sodium 142 mmol/L (135-145); Total Protein 5.6 g/dl (6.3-8.2); eGFR 59.10
[2024-10-18] MEDS: THERAGRAN 1 TABLET PO (08:40)
[2024-10-18] MEDS: ELIQUIS 5 MG PO ×2 (08:40→20:31)
[2024-10-18] MEDS: PACERONE 200 MG PO (08:40)
[2024-10-18] MEDS: LASIX 40 MG IV ×2 (08:40→17:13)
[2024-10-18] MEDS: TOPROL XL 100 MG PO (08:40)
[2024-10-18] MEDS: FLUSH (NSS) 2 FLUSH IV ×2 (08:43→17:13)
--- NOTE | 2024-10-18 13:04 | W.PN.HOSP.TC ---
Today's Communication/Plan
-
continue current plan of care
Assessment / Plan
Assessment / Plan
Assessment:
Acute HFpEF
- Echo 10/06 OP: normal LV systolic function EF 55-60, moderate eccentric mitral regurgitation color flow suggestive of PFO, dilated ascending aorta 4.3 cm
- continue IV Lasix 40mg BID - requires intensive monitoring of I/O, lytes, weights. Patient states baseline weight 265.
- OFR, sodium restrictions
- CHF education
- CBC Cards following
Elevated LFTs
- suspect passive congestion in setting of CHF
- monitor daily labs
Persistent atrial fibrillation RVR
- continue amiodarone. titrate BB per Cardiology
- continue Eliquis
- OP Ablation planned 10/27/24
Essential HTN
- monitor
Chronic lymphedema:
- He utilizes home pumps
SHRADDHA - may bring in home device
DVT ppx: Eliquis
Code: Full
Anticipated Discharge: > 48 hours
Subjective/Interval History
-
Date of Service: October 18, 2024
resting comfortably, no new complaints
reports dry weight is around 265 lbs
Objective Data
-
Labs:
Laboratory Results
10/18/24
05:54
WBC 6.5
Hgb 13.6
Hct 41.7
Plt Count 183
Sodium 142
Potassium 3.9
Chloride 105
Carbon Dioxide 33 H
BUN 19
Creatinine 1.3
Glucose 94
Calcium 8.6
Total Bilirubin 1.7 H
AST 40
ALT 72 H
Alkaline Phosphatase 78
Vital Signs:
Vital Signs
Temp Pulse Resp BP Pulse Ox
97.6 F 90 16 142/108 98
10/18/24 11:04 10/18/24 11:04 10/18/24 11:04 10/18/24 11:04 10/18/24 11:04
I&O
10/17/24 10/18/24 10/19/24
06:59 06:59 06:59
Output Total 5 / 2725
Balance -2725 / -2725
Physical Exam
-
General: No Apparent Distress
HEENT: Normocephalic and Atraumatic
Respiratory: Negative Wheezes
Cardiac: Irregular Rhythm
GI: Soft
Neuro: AO x 3
Psych: Calm
Data Reviewed
-
Total Time Spent with Patient (in minutes): 51
Labs: Labs Reviewed by me
--- NOTE | 2024-10-18 13:22 | W.PN.CD ---
Today's Communication / Plan
-
IV diuresis to continue
Add Aldactone
Check cost of SGLT2-I
Impression / Plan
-
New acute heart failure preserved ejection fraction:
- Etiology may be afib but at risk for HFpEF even w/o AFib
- Edema worsened, RAMIREZ new, new PND
- Improving
- Will add Aldactone to Lasix 40 IV BID
- Continue intensive monitoring of lyte/tele
- Check cost of SGLT2-I
Persistent atrial fibrillation RVR
- Amio recently started by Dr. Torres
- Eliquis
- Ablation scheduled
Moderate eccentric MR
- Will be followed
Hypertension
- Follow
- ARB are preferred with HFpEF if more meds needed
Chronic RLE lymphedema: He utilizes home pumps now adding diuretic
Subjective:
Feels better
Data:
Echo 09/2024: LVEF 55-60, mod eccentric MR, suspected PFO, AscAo 4.3 cm
Last Sinus EKG we have here at is 09/2023 (except at cardioversion 08/19/2024 resulted in sinus)
Physical Exam
Vital Signs/Labs
Vital Signs
Temp Pulse Resp BP Pulse Ox
97.6 F 90 16 142/108 98
10/18/24 11:04 10/18/24 11:04 10/18/24 11:04 10/18/24 11:04 10/18/24 11:04
10/17/24 10/18/24 10/19/24
06:59 06:59 06:59
Actual Weight 124.058 kg
10/18/24 05:54
10/18/24 05:54
Magnesium 2.0 mg/dl (1.6-2.3) 10/18/24 05:54
10/17/24
08:12
Dog-P-Qzqvsfgcyee Pept 2120
LAB Results
10/17/24
08:12
Troponin I 0.014
Data Reviewed
-
Date of Service: October 18, 2024
[2024-10-19] VITALS (7 sets, daily range): BP systolic 128–148; BP diastolic 85–112; BMI 38.7
[2024-10-19 06:38] LABS: Hematocrit 44.6 % (39.0-52.0); Hemoglobin 14.5 g/dL (13.0-18.0); Mean Corp Hgb Conc. 32.5 g/dL (33.0-37.0); Mean Corpuscular Volume 91.4 fL (80.0-94.0); Platelet Count 202 10^3/uL (130-400); Red Cell Dist. Width 15.0 % (11.5-14.5)
[2024-10-19 07:02] LABS: ALT (SGPT) 61 U/L (0-50); AST (SGOT) 33 U/L (17-59); Albumin 3.8 g/dl (3.5-5.0); Alkaline Phosphatase 76 U/L (38-126); Blood Urea Nitrogen 22 mg/dl (9-20); Calcium 8.7 mg/dl (8.4-10.2); Carbon Dioxide 34 mmol/L (22-30); Chloride 103 mmol/L (98-107); Estimated Creatinine Clearance 75 ml/min; Glucose 102 mg/dl (70-99); Potassium 3.9 mmol/L (3.5-5.1); Sodium 143 mmol/L (135-145); Total Protein 6.2 g/dl (6.3-8.2); eGFR > 60.00
[2024-10-19] MEDS: LASIX 40 MG IV ×2 (08:32→17:44)
[2024-10-19] MEDS: ALDACTONE 25 MG PO (08:33)
[2024-10-19] MEDS: PACERONE 200 MG PO (08:33)
[2024-10-19] MEDS: FLUSH (NSS) 2 FLUSH IV (08:33)
[2024-10-19] MEDS: THERAGRAN 1 TABLET PO (08:34)
[2024-10-19] MEDS: ELIQUIS 5 MG PO ×2 (08:34→19:52)
[2024-10-19] MEDS: TOPROL XL 100 MG PO (08:34)
--- NOTE | 2024-10-19 08:46 | W.PN.HOSP.TC ---
Today's Communication/Plan
-
continue IV Lasix; monitor weights
follow CBC cards recs
Assessment / Plan
Assessment / Plan
Assessment:
Acute HFpEF
- Echo 10/06 OP: normal LV systolic function EF 55-60, moderate eccentric mitral regurgitation color flow suggestive of PFO, dilated ascending aorta 4.3 cm
- continue IV Lasix 40mg BID - requires intensive monitoring of I/O, lytes, weights. Patient states baseline weight 265.
- OFR, sodium restrictions
- CHF education
- CBC Cards following
Elevated LFTs
- suspect passive congestion in setting of CHF
- monitor daily labs
Persistent atrial fibrillation RVR
- continue amiodarone. titrate BB per Cardiology
- continue Eliquis
- OP Ablation planned 10/27/24.
Essential HTN
- monitor
Chronic lymphedema:
- He utilizes home pumps
SHRADDHA - may bring in home device
DVT ppx: Eliquis
Code: Full
Anticipated Discharge: 24 - 48 hours
Subjective/Interval History
-
Date of Service: October 19, 2024
resting comfortably, weight down 269 lbs
Objective Data
-
Labs:
Laboratory Results
10/19/24
06:24
WBC 6.3
Hgb 14.5
Hct 44.6
Plt Count 202
Sodium 143
Potassium 3.9
Chloride 103
Carbon Dioxide 34 H
BUN 22 H
Creatinine 1.2
Glucose 102 H
Calcium 8.7
Total Bilirubin 1.8 H
AST 33
ALT 61 H
Alkaline Phosphatase 76
Vital Signs:
Vital Signs
Temp Pulse Resp BP Pulse Ox
97.8 F 86 18 147/99 97
10/19/24 07:22 10/19/24 07:22 10/19/24 07:22 10/19/24 07:22 10/19/24 07:22
I&O
10/18/24 10/19/24 10/20/24
06:59 06:59 06:59
Intake Total 480 / 480
Output Total 2725 / 2725 3650 / 3650
Balance -2725 / -2725 -3170 / -3170
Physical Exam
-
General: No Apparent Distress
HEENT: Normocephalic and Atraumatic
Respiratory: Negative Wheezes
Cardiac: Irregular Rhythm
GI: Soft
Musculoskeletal: No Edema
Neuro: AO x 3
Hematologic / Lymphatic: No Lymphadenopathy
Psych: Calm
Data Reviewed
-
Total Time Spent with Patient (in minutes): 51
Labs: Labs Reviewed by me
--- NOTE | 2024-10-19 09:38 | CM ---
CM reviewed chart. Pt has no skilled needs noted at this time.
Please consult CM/SW should dc planning needs change.
CM/SW will continue to follow to ensure a safe and timely discharge.
--- NOTE | 2024-10-19 14:04 | W.PN.CD ---
Addendum entered and electronically signed by Calvin Booker MD 10/19/24 15:58:
I saw and evaluated the patient. I reviewed the resident�s note and agree with findings and plan as documented in the resident�s note.
Patient seen and independently examined. Comfortable and sitting in a chair no complaints of shortness of breath lungs are clear. He has chronic lymphedema left leg. In addition he has some very mild edema on right leg. Left leg edema
considerably greater than right. A-fib rates are reasonably well-controlled. Acute heart failure preserved ejection fraction is improving with diuretics.. A-fib rates are reasonably controlled upper 90s to low 100s.
- Transition from IV Lasix to oral tomorrow
- Continue with amiodarone and beta-darian as prescribed
- Continue with plan for outpatient A-fib ablation.
- Possible discharge in 24-48
Original Note:
Today's Communication / Plan
-
Continue diuresis
Monitor weights, I&O's, electrolytes
Transition to oral Lasix 40 mg once daily tomorrow
Impression / Plan
-
Impression
69-year-old male with persistent A-fib, hypertension, asthma, lymphedema presenting to the ER with increased bilateral lower extremity edema, worsening shortness of breath and orthopnea.
Plan
#New acute heart failure preserved ejection fraction
Etiology likely due to A-fib
BNP�2120
Mildly elevated LFTs�likely due to hepatic congestion
Lower extremity edema and dyspnea improving
Weight trending down 279 > 269
Continue Aldactone
Transition to oral Lasix 40 mg once daily tomorrow
Monitor renal function
Monitor weights, I's and O's.
Check cost of SGLT2 per case management.
Check BMP at 1 week, and 3 weeks after discharge.
#Persistent atrial fibrillation RVR
Telemetry reviewed
Continue amiodarone
Rate control with metoprolol
Continue Eliquis
Ablation scheduled for 10/27/2024
Monitor telemetry
#Hypertension
Continue metoprolol
#Chronic bilateral lymphedema�left >right
Continue diuresis
He utilizes home pumps
Physical Exam
Vital Signs/Labs
Vital Signs
Temp Pulse Resp BP Pulse Ox
97.8 F 87 18 136/94 97
10/19/24 11:35 10/19/24 11:35 10/19/24 11:35 10/19/24 11:35 10/19/24 11:35
10/18/24 10/19/24 10/20/24
06:59 06:59 06:59
Actual Weight 273 lb 8 oz 269 lb 6.4 oz
10/19/24 06:24
10/19/24 06:24
Magnesium 2.0 mg/dl (1.6-2.3) 10/18/24 05:54
10/17/24
08:12
Vmy-Y-Rvefetxlcjd Pept 2119
LAB Results
10/17/24
08:12
Troponin I 0.014
Physical Exam
Constitutional: No acute distress, Comfortable and Other (On room air)
EENT: Moist mucous membranes
Cardiovascular: Rhythm/rate is irregular, S1S2 is normal and Other (Bilateral lower extremity edema)
Respiratory: Lungs clear to auscul. and Crackles Absent
GI: Soft
Neuro/Psych: Alert, Oriented and AO x 3
Data Reviewed
-
Date of Service: October 19, 2024
[2024-10-20 03:23] VITALS: BP 120/86
[2024-10-20 05:57] VITALS: BMI 38.3
[2024-10-20 06:00] VITALS: BMI 38.3
[2024-10-20 06:47] LABS: Hematocrit 42.4 % (39.0-52.0); Hemoglobin 13.8 g/dL (13.0-18.0); Mean Corp Hgb Conc. 32.5 g/dL (33.0-37.0); Mean Corpuscular Volume 91.0 fL (80.0-94.0); Platelet Count 188 10^3/uL (130-400); Red Cell Dist. Width 14.9 % (11.5-14.5)
[2024-10-20 07:09] LABS: ALT (SGPT) 49 U/L (0-50); AST (SGOT) 29 U/L (17-59); Albumin 3.5 g/dl (3.5-5.0); Alkaline Phosphatase 71 U/L (38-126); Blood Urea Nitrogen 26 mg/dl (9-20); Calcium 8.6 mg/dl (8.4-10.2); Carbon Dioxide 33 mmol/L (22-30); Chloride 104 mmol/L (98-107); Estimated Creatinine Clearance 69 ml/min; Glucose 91 mg/dl (70-99); Potassium 3.9 mmol/L (3.5-5.1); Sodium 141 mmol/L (135-145); Total Protein 5.7 g/dl (6.3-8.2); eGFR 59.10
[2024-10-20 07:15] VITALS: BP 141/100
[2024-10-20 07:44] VITALS: BMI 38.3
--- NOTE | 2024-10-20 08:20 | W.PN.CD ---
Today's Communication / Plan
-
PO lasix
OK for discharge
Has AF ablation next Saturday
Has F/U with ANASTAS[facility] tomorrow for pre-AF eval
Impression / Plan
-
Impression
69-year-old male with persistent A-fib, hypertension, asthma, lymphedema presenting to the ER with increased bilateral lower extremity edema, worsening shortness of breath and orthopnea.
Plan
#New acute heart failure preserved ejection fraction
Etiology likely due to A-fib
BNP�2120
Mildly elevated LFTs�likely due to hepatic congestion
Lower extremity edema and dyspnea improving
Weight trending down 279 > 267 today
Continue Aldactone
Lasix 40 mg daily; ablation is planned for next week
Monitor weights, I's and O's.
Check cost of SGLT2 per case management.
Check BMP at 1 week, and 3 weeks after discharge.
#Persistent atrial fibrillation RVR
Telemetry reviewed
Continue amiodarone
Rate control with metoprolol
Continue Eliquis
Ablation scheduled for 10/27/2024
Monitor telemetry
#Hypertension
Continue metoprolol
#Chronic bilateral lymphedema�left >right
Continue diuresis
He utilizes home pumps
Physical Exam
Vital Signs/Labs
Vital Signs
Temp Pulse Resp BP Pulse Ox
97.8 F 109 16 141/100 97
10/20/24 07:15 10/20/24 07:15 10/20/24 07:15 10/20/24 07:15 10/20/24 07:15
10/19/24 10/20/24 10/21/24
06:59 06:59 06:59
Actual Weight 269 lb 6.4 oz 266 lb 12.8 oz 267 lb
10/20/24 05:54
10/20/24 05:54
Magnesium 2.0 mg/dl (1.6-2.3) 10/18/24 05:54
10/17/24
08:12
Dle-Z-Oapfxgwjaet Pept 2119
LAB Results
10/17/24
08:12
Troponin I 0.014
Physical Exam
Constitutional: No acute distress and Comfortable
EENT: Anicteric
Cardiovascular: Rhythm/rate is irregular and Pedal edema present
Respiratory: Respiratory effort normal and Lungs clear to auscul.
GI: Soft
Neuro/Psych: AO x 3
Data Reviewed
-
Date of Service: October 20, 2024
Medical Decision Making: Reviewed Test Results
EKG: Tracing Personally Visualized and interpreted (af)
Echo: Report Reviewed by me
Labs: Labs Reviewed by me
[2024-10-20] MEDS: THERAGRAN 1 TABLET PO (08:46)
[2024-10-20] MEDS: PACERONE 200 MG PO (08:46)
[2024-10-20] MEDS: ELIQUIS 5 MG PO (08:46)
[2024-10-20] MEDS: ALDACTONE 25 MG PO (08:46)
[2024-10-20] MEDS: TOPROL XL 100 MG PO (08:47)
[2024-10-20] MEDS: LASIX IV (09:02)
[2024-10-20] MEDS: LASIX 40 MG PO (09:46)
[2024-10-20 11:00] VITALS: BP 137/98
--- NOTE | 2024-10-20 12:03 | CM ---
CM following re: discharge planning.
Reviewed pt' chart, met with pt.
CM consult to check the [facility] for Farxiga and Jardiance 10 mg Daily noted. CM called [facility] pharmacist and she requested a script. Planning Division Superintendent is informed to send a script.
Pt is aware, expressed his disappointed feelings and he stated he will not have Farxiga or Jardiance as his home medications and pt stated he will talk about it with his PCP.
Discharge order noted. Pt is aware, expressed his agreement and he stated his spouse will transport home. IMM reviewed, placed on chart, pt has a copy.
No after care VN services indicated.
D/C plan: home no needs. Spouse to transport.
--- NOTE | 2024-10-20 13:11 | W.PN.HOSP.TC ---
Today's Communication/Plan
-
d/c home
Assessment / Plan
Assessment / Plan
Assessment:
Acute HFpEF
- Echo 10/06 OP: normal LV systolic function EF 55-60, moderate eccentric mitral regurgitation color flow suggestive of PFO, dilated ascending aorta 4.3 cm
- OFR, sodium restrictions
- CHF education
- CBC Cards following
- Cardiology cleared patient to be discharged on oral Lasix 40 mg daily.
Elevated LFTs
- suspect passive congestion in setting of CHF
- monitor daily labs
Persistent atrial fibrillation RVR
- continue amiodarone. titrate BB per Cardiology
- continue Eliquis
- OP Ablation planned 10/27/24.
Essential HTN
- monitor
Chronic lymphedema:
- He utilizes home pumps
SHRADDHA - may bring in home device
DVT ppx: Eliquis
Code: Full
More than 30 minutes spent in discharge including
Final examination of the patient
Summarizing hospital stay
Instructions for continuing care to all relevant caregivers
Preparation of discharge records, prescriptions, and referral forms
Total time spent (in minutes):39 mins
Anticipated Discharge: Today
Subjective/Interval History
-
Date of Service: October 20, 2024
No complaints overnight
Objective Data
-
Labs:
Laboratory Results
10/20/24
05:54
WBC 6.9
Hgb 13.8
Hct 42.4
Plt Count 188
Sodium 141
Potassium 3.9
Chloride 104
Carbon Dioxide 33 H
BUN 26 H
Creatinine 1.3
Glucose 91
Calcium 8.6
Total Bilirubin 1.7 H
AST 29
ALT 49
Alkaline Phosphatase 71
Vital Signs:
Vital Signs
Temp Pulse Resp BP Pulse Ox
98.2 F 98 16 137/98 97
10/20/24 11:00 10/20/24 11:00 10/20/24 11:00 10/20/24 11:00 10/20/24 11:00
I&O
10/19/24 10/20/24 10/21/24
06:59 06:59 06:59
Intake Total 480 / 480 480 / 480
Output Total 3650 / 3650 900 / 900
Balance -3170 / -3170 -420 / -420
Review of Systems
-
Respiratory: Reports No Symptoms
Cardiac: Reports No Symptoms
Abdomen/GI: Reports No Symptoms
Physical Exam
-
General: No Apparent Distress and Comfortable
HEENT: Negative Oxygen
Respiratory: Clear to Auscultation
Cardiac: Regular Rhythm and S1/S2; Negative Murmur or Rub
GI: Soft, Nontender, Nondistended and Normal Bowel Sounds
Musculoskeletal: No Edema
Neuro: Awake, Alert, Oriented, No Motor Deficits and Nonfocal/Grossly Intact
Psych: Calm
== END 2024-10-20 13:31 | disposition home or self-care (01) | DRG 291 ==
LOC: 2 NORTH 13:17
PROVIDERS: ADMITTING PHYSICIAN Internal Medicine; ATTENDING PHYSICIAN Hospitalist; CONSULT PHYSICIAN Internal Medicine Cardiovascular Disease; EMERGENCY PHYSICIAN Emergency Medicine; FAMILY PHYSICIAN Family Medicine
DX: I11.0 Hypertensive heart disease with heart failure (principal); I50.31 Acute diastolic (congestive) heart failure; I48.19 Other persistent atrial fibrillation; I89.0 Lymphedema, not elsewhere classified; G47.33 Obstructive sleep apnea (adult) (pediatric); E66.9 Obesity, unspecified; Z68.38 Body mass index [BMI] 38.0-38.9, adult; J45.909 Unspecified asthma, uncomplicated; K21.9 Gastro-esophageal reflux disease without esophagitis; Z79.01 Long term (current) use of anticoagulants; Z96.651 Presence of right artificial knee joint; Z79.899 Other long term (current) drug therapy
CPT/HCPCS: 71046; 80053; 83735; 83880; 84443; 84484; 85025; 85027; 87070; 87147; 93005; 93970; 96374; 96375; 97162; 97165; 99285

== ENCOUNTER → 2024-10-21 13:42 | Outpatient (REF) | payer MEDICARE, OTHER, SELFPAY | LOC: SDSPAT 13:42 | PROVIDERS: ATTENDING PHYSICIAN Internal Medicine Cardiovascular Disease; FAMILY PHYSICIAN Family Medicine; OTHER PHYSICIAN Internal Medicine Cardiovascular Disease | DX: R06.02 Shortness of breath (principal) | CPT/HCPCS: 36415; 86850; 86900; 86901 ==

== ENCOUNTER 2024-10-27 05:59 | Day surgery (SDC) | payer MEDICARE, OTHER, SELFPAY ==
--- NOTE | 2024-10-21 14:17 | HPS.HSE ---
Family Physician
-
Family Physician: NO INTERVIEW UNKNOWN
Chief Complaint
-
Persistent atrial fibrillation.
History of Present Illness
The patient is a 69 year old morbidly obese, male presenting today for persistent atrial fibrillation. He does report symptoms of fatigue and dyspnea, worse with exertion, associated with this diagnosis. He previously underwent a
cardioversion on August 19 and August 27 of this year. Unfortunately, his arrhythmia returned within days of these procedures. He is on current pharmacological therapy with Metoprolol Succinate. He does report compliance with Eliquis for oral
anticoagulation due to a [id number] of 2. He was recently diagnosed with acute heart failure in the setting of his arrhythmia. He has been started on daily Furosemide and Spironolactone. He notes that his symptoms associated with his arrhythmia
greatly interfere with his activities of daily living and overall impact his quality of life. He is interested in pursuing with an Affera atrial fibrillation ablation for further arrhythmia management. He denies any complaints today such as chest
pain, shortness of breath at rest, nausea, vomiting, diarrhea, lightheadedness, dizziness, cough, sore throat, or fever.
Medical History
Past Medical History
Past Medical History: Reports Other
Additional Past Medical History:
1. Persistent atrial fibrillation, status post cardioversion x2; pharmacological therapy with Amiodarone and Metoprolol Succinate, oral anticoagulation with Eliquis.
2. Acute heart failure secondary to the above 10/17/2024; preserved ejection fraction.
3. Hypertension.
4. Dilated ascending aorta, 4.3 cm.
5. Moderate mitral regurgitation.
6. Chronic lymphedema.
7. Venous varicosities, status post left lower extremity vein stripping x2.
8. Asthma, mild and intermittent.
9. Probable obstructive sleep apnea, sleep study advised.
10. GERD.
11. Hiatal hernia.
12. Vertigo.
13. Osteoarthritis, status post right total knee arthroplasty, 2006, and left total knee arthroplasty 09/2023.
14. History of shingles.
15. Morbid obesity, BMI 42.1.
Past Surgical History: Reports Other
Additional Past Surgical History:
1. AYAZ-guided cardioversion x2.
2. Left lower extremity vein stripping x2.
3. Right total knee arthroplasty.
4. Left total knee arthroplasty.
5. Right knee ACL repair.
6. Left toe partial amputation.
7. Left foot Ovalles's neuroma excision.
8. Bilateral carpal tunnel release.
9. Nasal polypectomy.
10. Bilateral cataract extraction.
Social History
Tobacco: Non-smoker
Alcohol: None
Personal:
Living: Other (He lives with his in a 2 story home. )
Family History
Family History: Not pertinent
Allergies / Home Medications
Allergy/Medication List:
Home medications:
1. Albuterol sulfate 2.5 mg inhaled every 4 hours as needed.
2. Amiodarone 200 mg p.o. daily.
3. Breo Ellipta 1 puff inhaled daily as needed.
4. Eliquis 5 mg p.o. twice a day.
5. Furosemide 40 mg p.o. daily.
6. Metoprolol Succinate 100 mg p.o. daily.
7. Multivitamin 1 tablet p.o. daily.
8. Spironolactone 25 mg p.o. daily.
Allergies: Percocet.
Review of Systems
-
A 12 point ROS was completed and negative except as noted: Yes
Physical Exam
Vital Signs
Blood pressure 105/75. Heart rate 92. Respirations 18. Pulse ox 97% on room air.
Height 5 feet, 7 inches. Weight 121.8 kg. BMI 42.1.
Physical Exam
General: Well Developed, Well Nourished and No Apparent Distress
HEENT: NormoCephalic, Moist mucous membranes, Atraumatic and PERRLA
Respiratory: Clear
Cardiac: Irregular Rhythm
GI: Soft, Non Tender, Non Distended and Other (Obese. )
Musculoskeletal: Normal Gait & Station and Other (Bilateral lower extremity edema, left lower extremity worse than right. )
Skin: Warm and Dry
Neuro: AO x 3 and Nonfocal/grossly intact
Laboratory Results
-
DIAGNOSTIC STUDIES as of 10/21/2024: Type and screen O positive.
DIAGNOSTIC STUDIES as of 10/20/2024: White blood cell count 6.9. Hemoglobin 13.8. Platelet count 188,000. Sodium 141. Potassium 3.9. BUN 26. Creatinine 1.3. Glucose 91. Calcium 8.6. AST 49. ALT 71. Albumin 3.5.
EKG 10/20/2024: Atrial fibrillation with rapid ventricular response. Prolonged QT.
Echocardiogram 10/06/2024: Normal left ventricular systolic function. Estimated ejection fraction 55 to 60%. Moderate eccentric mitral regurgitation. Color-flow suggestive of PFO. Dilated ascending aorta 4.3 cm.
Impression/Plan
-
IMPRESSION/PLAN:
1. Persistent atrial fibrillation: The patient is in need of an Affera atrial fibrillation ablation with Dr. Bon Torres on 10/27/2024. The benefits and risks of the procedure have been explained to the patient. The patient understands these risks
and wishes to proceed. He will not be required to undergo a pre-procedural transesophageal echocardiogram as he has been compliant with his home oral anticoagulation. He is aware to continue Eliquis uninterrupted prior to his ablation. He will hold
his Eliquis and Furosemide the morning of his procedure.
[2024-10-21 14:18] VITALS: BMI 42.1
[2024-10-27] VITALS (19 sets, daily range): BP systolic 80–130; BP diastolic 62–105
[2024-10-27 08:37] LABS: ACT-LR - POC 334 Seconds (116-155)
[2024-10-27 09:01] LABS: ACT-LR - POC 355 Seconds (116-155)
[2024-10-27 09:54] LABS: ACT-LR - POC > 397 Seconds (116-155)
--- NOTE | 2024-10-27 10:03 | ITS.CL.ABL ---
Quality Assurance Monitor Body - Ablation
Ablation
Procedure Report:
AFIB / A flutter ablation:
Mr. Chase is a very pleasant 69 yr old gentleman with medical history significant for symptomatic persistent atrial fibrillation is here in the EP lab for atrial fibrillation / flutter ablation
Date of Procedure:
10/27/2024
Indications:
Symptomatic persistent atrial fibrillation
Pre-Operative Diagnosis:
Persistent atrial fibrillation
Post-Operative Diagnosis:
Persistent atrial fibrillation
Procedure Performed:
Atrial fibrillation ablation with wide area circumferential ablation (WACA) approach for pulmonary vein isolation
Atypical atrial flutter ablation with roof line formation
Posterior wall isolation
Substrate modification
Performing Physician:
Bon Torres MD
Assistants:
EP staff
Anesthesia:
See anesthesia records
Detailed Description of the Procedure:
Written informed consent was obtained from the patient after a full explanation of the risks and benefits of the procedure including the risks of sedation and anesthesia.
The patient was brought to the electrophysiology laboratory in stable condition in fasting state. Continuous electrocardiographic and hemodynamic monitoring was initiated.
The initial rhythm was atrial fibrillation.
The procedure site was meticulously prepared with surgical scrub and allowed to dry with no pooling. Sterile draping was applied to cover the procedure site. The image intensifier was draped with sterile bag and positioned over the patient. After
infusion of local anesthetic, vascular access was obtained under ultrasound guidance and sheaths were placed over guide wire as detailed below.
The images of the ultrasound of the femoral vessels were stored in patient chart.
Sheath and Catheter Placement:
In the right femoral vein, an 8-[place] sheath was placed under ultrasound guidance for use during the ablation procedure. And mapping catheter was intermittently placed in the high right atrium, right ventricle, left atrium and left ventricle. In
the right femoral vein, a 9-Fr sheath was placed for use during intracardiac echo procedure.
The sheaths were upgraded as needed during the case. Intracardiac catheters were positioned using direct fluoroscopic guidance.� ICE catheter was placed in RA. The following catheters / sheaths were placed
Sheaths:
��������� Agilis sheath in right femoral vein upgraded from 8Fr in right femoral vein
��������� 9Fr in right femoral vein
��������� 7Fr in right femoral vein.
Catheters:
��������� The Affera Sphere 9 catheter -bidirectional D/F� - at locations of HRA, RV, LA and LV.
��������� ICE catheter -AccuNav -� at locations of RA, SVC, and RV.
Heparin was initiated after the access was obtained.
Intracardiac ECHO:
An 8-[place] AcuNav intracardiac ECHO (ICE) probe was advanced through the 9-[place] Citizen sheath in the left femoral vein into the right atrium under fluoroscopic and ICE ultrasound image guidance and a baseline ECHO study was performed. The left atrial
size was dilated. There was trace tricuspid regurgitation. The aortic valve was grossly normal. There was normal ventricular systolic function. There is small pericardial effusion. The BHARATH has baseline low velocities. The pulmonary had good flow
identified.
During the procedure, ICE was used for monitoring of complications, guidance of trans-septal puncture, monitor the catheter position and tracking ablation lesions. No change in the pericardial space noted throughout the procedure.
Trans-septal Puncture:
Heparin was initiated and infused to maintain appropriate ACT. A J-tipped guidewire was advanced through into the superior vena cava under fluoroscopic and ICE guidance. The Agilis sheath was advanced into the superior vena cava over a guidewire.
The BRK needle was placed inside the Agilis sheath.� The apparatus was withdrawn until it was in contact with the fossa ovalis. The position was adjusted based on fluoroscopy and ultrasound images from ICE. Under fluoroscopic, hemodynamic and ICE
ultrasound guidance, left atrium was cannulated by advancing the needle. Once atrial septum was cannulated, the needle was pulled back and the guide wire was advanced through the needle into the left atrium. The guide wire was advanced into the left
superior pulmonary vein. Both the sheath and the dilator was advanced into the left atrium. The dilator with the needle was withdrawn. Blood was aspirated from the Agilis sheath and arterial blood confirmed. The sheath was flushed. Saline injection
noted into the left atrium on ICE. The waveform of the LA pressure was recorded. The mapping catheter was advanced in the Agilis sheath into the left pulmonary vein.
3D Electroanatomic Mapping:
Using the Sphere 9 Affera catheter advanced through Agilis sheath into the left atrium, an electroanatomic map (EAM) of the left atrium was created using AGRIMAPSa� mapping system with Prism-1 software. The map was used for localization of catheter
position and tacking of ablation lesions. The EAM of the left atrium showed a total of 4 PVs with two left and the two right sided pulmonary veins with all electrically connected to the body the LA. It showed extensive scattered scar on the
posterior and anterior wall of the LA. The LA was severely dilated in size.
Following the EAM, preparation were made for ablation.
Ablation:
Ablation # 1: Pulmonary vein Isolation:
Pulsed field ablation was performed using an open irrigation, bidirectional, contact sensing, dual energy ablation catheter (Affera sphere -9) by completing the circumferential lesions around the left and right pulmonary veins achieving pulmonary
vein isolation.
Confirmation of the PVI and bidirectional block:
Following achievement of entrance block at the pulmonary veins, pacing from the Sphere 9 affera catheter in each of the four veins at 20 milliamps for 4 milliseconds showed entrance and exit block.
The LA was mapped with The AGRIMAPSa� mapping system with Prism-1 software in sinus rhythm confirming the line of block at the ablation lesions lines.
There was extensive scar noted in the posterior wall with slowing of conduction making a substance for reentry flutter.
Ablation # 2: Roof line Formation:
There was a clear channel of electrical activity left in the posterior wall with multiple CFAE and AF areas on the roof and ablation in that area increased the risk of atrial flutter and decision was made to create a roof line to block a slow
conduction. A set of pulsed field ablations were placed on the roof line connecting the left superior pulmonary vein ablation lesions to the right superior pulmonary vein lesions rings.
Ablation # 3: Posterior wall isolation with the Box lesions set Formation:
There was a significant fractionation seen in the posterior wall and LA AF foci along with CFAE made it clear as the posterior wall is critical in maintaining the atrial fibrillation and the decision was made to isolate the posterior wall by
creating a �Box� lesions.
A set of Pulsed field ablations were placed on the floor line connecting the left inferior pulmonary vein ablation lesions to the right inferior pulmonary vein lesions rings.
Cardioversion:
Due to the persistence in atrial fibrillation, the decision was made to proceed with a cardioversion followed by the remainder of the ablation as detailed below. Therefore, a 200J shock was delivered to the chest via Zoll patches with hoahaoism of
sinus rhythm. The patient remained hemodynamically stable throughout.
Electroanatomic mapping:
The sphere 9 in the posterior wall showed entrance block and the pacing from the posterior wall showed no exit from the box lesions confirming the exit block.
Ablation # 4: Posterior wall ablation with Z line formation:
There were isolated signals noted on the posterior wall. With the box lesion created and block confirmed, the decision was made to ablate the posterior wall severing epicardial connections and decision was made to create the Z line ablation on the
posterior wall.
A series of ablations were placed connecting the junction of left superior pulmonary vein and the roof line to the junction of right inferior pulmonary vein and the floor line ablating the ganglion plexi next to both antra.
EP study:
Sinus Node Function: The sinus node functions are within acceptable normal range.
Atrioventricular Anthony Function: �Normal AV conduction noted. AH was 105 ms and HV was 58 ms.
Aggressive measures were deployed but no flutter was induced.
Procedure End
ICE study was done again that showed no epicardial accumulation. No complications noted.
Following the completion of the EP study, catheters were removed. Protamine 40 mg was given at the end of the procedure and ACT was checked repeatedly. The sheaths were removed and hemostasis achieved with Fig of 8 suture and manual compression
after acceptable ACT is achieved.
Left atrial Pressure:
Pre-Procedure: Mean LA pressure was 17mmHg
Post-Procedure: Mean LA pressure was 19mmHg
Post-Procedure: Mean RA pressure was 9mmHg
Fluoro Time:
1.1min
Estimated Blood loss:
<10 cc
Specimens Removed:
None.
Implants / Devices:
None
Urine output:
None
Packs / Drains/ Tubes:
None
Instrument / Sponge Count Correct:
Yes
Complications of the Procedure:
None
Condition of Patient at Time of Transfer:
Hemodynamically stable with no neurological or vascular compromise.
Summary:
��������� Successful atrial fibrillation ablation with circumferential bidirectional line of block at pulmonary venin antra (Pulmonary vein isolation), roof flutter line creation, Posterior wall isolation.
Figures from the Procedure:
Figure 1: The electroanatomic mapping (EAM) of the left atrium with bipolar voltage (purple indicates normal electrical activity with red as no myocardial muscle electric activity indicating a line of block or scar.
Pre- in AF
Post in sinus
--- NOTE | 2024-10-27 13:53 | W.PN.UPDATE ---
Update Note
Progress Note Update
Pt seen post PFA. Right groin site without ht/bleeding, non tender. Post EKG NSR w/1st deg AVB and PACs, no change from prior. Resume eliquis tonight. Continue amiodarone and other meds as before. Followup at [facility] as scheduled. Home today if groin
site/tele remain stable.
== END 2024-10-27 15:00 | disposition home or self-care (01) ==
LOC: CATH 05:59
PROVIDERS: ATTENDING PHYSICIAN Internal Medicine Cardiovascular Disease; FAMILY PHYSICIAN Family Medicine; OTHER PHYSICIAN Internal Medicine Cardiovascular Disease
DX: I48.19 Other persistent atrial fibrillation (principal); I48.4 Atypical atrial flutter; I11.0 Hypertensive heart disease with heart failure; I50.30 Unspecified diastolic (congestive) heart failure; I34.0 Nonrheumatic mitral (valve) insufficiency; I89.0 Lymphedema, not elsewhere classified; J45.909 Unspecified asthma, uncomplicated; I83.90 Asymptomatic varicose veins of unspecified lower extremity; K21.9 Gastro-esophageal reflux disease without esophagitis; M19.90 Unspecified osteoarthritis, unspecified site; Z86.19 Personal history of other infectious and parasitic diseases; E66.01 Morbid (severe) obesity due to excess calories; Z68.41 Body mass index [BMI] 40.0-44.9, adult; K44.9 Diaphragmatic hernia without obstruction or gangrene; R42 Dizziness and giddiness; I44.0 Atrioventricular block, first degree; Z79.01 Long term (current) use of anticoagulants; Z79.51 Long term (current) use of inhaled steroids; Z79.899 Other long term (current) drug therapy; Z88.5 Allergy status to narcotic agent; Z96.653 Presence of artificial knee joint, bilateral
CPT/HCPCS: C1769; C1894 ×2; C1766; C1892; C1732; 85347; 86900; 86901; 93005; 93655; 93656; 93657; C1733